=== PATIENT | female | born 1985 | race Caucasian/White ===

== ENCOUNTER 2024-01-28 17:31 | Emergency (ER) | payer BC ==
[~2024-01-28] VITALS: Ht 162.6 cm; Wt 90.7 kg
[2024-01-28] MEDS ORDERED: KETOROLAC TROMETHAMINE 30 MG INJ ONE (23:24)
[2024-01-28] MEDS ORDERED: AMOXICILLIN-CLAVUL 875-125MG TABLET ONE (23:24)
[2024-01-28] MEDS ORDERED: HYDROCODONE/APAP 5-325MG TABLET ONE (23:25)
[2024-01-28] MEDS: HYDROCODONE/APAP 5-325MG TABLET PO ONE (23:32)
[2024-01-28] MEDS: KETOROLAC TROMETHAMINE 30 MG INJ IM ONE (23:32)
[2024-01-28] MEDS: AMOXICILLIN-CLAVUL 875-125MG TABLET PO ONE (23:32)
[2024-01-28 23:41] LABS: BASOPHILS # (AUTO) 0.1 K/UL (0.0-0.2); BASOPHILS % (AUTO) 0.5 % (0.0-2.0); DIFFERENTIAL COMMENT 1; EOSINOPHILS # (AUTO) 0.3 K/uL (0.0-0.7); EOSINOPHILS % (AUTO) 2.1 % (0.0-7.0); HEMATOCRIT 40.2 % (31.2-41.9); HEMOGLOBIN 13.5 g/dL (10.9-14.3); LYMPHOCYTES # (AUTO) 2.3 K/uL (0.8-4.8); LYMPHOCYTES % (AUTO) 19.2 % (20.5-51.5); MEAN CORPUSCULAR HEMOGLOBIN 28.2 uug (24.7-32.8); MEAN CORPUSCULAR HGB CONC 34 g/dL (32.3-35.6); MEAN CORPUSCULAR VOLUME 84.1 fL (75.5-95.3); MONOCYTES # (AUTO) 0.8 K/uL (0.1-1.30); MONOCYTES % (AUTO) 6.7 % (0.0-11.0); NEUTROPHILS # (AUTO) 8.6 K/uL (1.8-8.9); NEUTROPHILS % (AUTO) 71.5 % (38.5-71.5); PLATELET COUNT (AUTO) 323 K/uL (179-408); RED BLOOD CELL COUNT(AUTO) 4.78 MIL/uL (3.63-4.92); RED CELL DISTRIBUTION WIDTH 13.7 % (12.3-17.7); WHITE BLOOD COUNT (AUTO) 12.1 K/uL (3.8-11.8)
[2024-01-29 00:03] LABS: ALBUMIN 3.7 g/dL (3.4-5.0); BILIRUBIN,TOTAL 0.6 mg/dL (0.2-1.0); CALCIUM 9.4 mg/dL (8.5-10.1); CREATININE 0.8 mg/dL (0.6-1.3); POTASSIUM 4.2 mmol/L (3.5-5.1)
[2024-01-29] MEDS ORDERED: NAPR500T6 PO (04:52)
[2024-01-29] MEDS ORDERED: AMOX-430 PO (04:52)
[2024-01-29] MEDS ORDERED: HYDR-4209 PO (04:52)
[2024-01-29 05:01] VITALS: BP 138/85; TEMP 98.6; O2SAT 99
== END 2024-01-29 05:01 | disposition home or self-care (01) ==
LOC: ER 17:38
DX: J02.9 Acute pharyngitis, unspecified (principal); L03.211 Cellulitis of face; K05.30 Chronic periodontitis, unspecified; R03.0 Elevated blood-pressure reading, without diagnosis of hypertension; J45.909 Unspecified asthma, uncomplicated; Z98.890 Other specified postprocedural states; Z79.899 Other long term (current) drug therapy
CPT/HCPCS: 99285; 70486; 80053; 85025; 85610; 86403; 87070; 36415; 96372; 83605; J1885; A4606; A4663